=== PATIENT | female | born 1960 | race Caucasian/White ===

== ENCOUNTER 2017-03-05 12:43 | Emergency (ER) | payer BC ==
[2017-03-05 12:57] VITALS: TEMP 97; O2SAT 98
[2017-03-05] MEDS ORDERED: MORPHINE SULFATE INJ 10 MG/ML VIAL IM ONE (13:31)
[2017-03-05] MEDS ORDERED: TETANUS,DIPHTHERIA,PERTUSSIS 1 EA SYG IM ONE (13:31)
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
[2017-03-05] MEDS ORDERED: SILVER SULFADIAZINE 1 % 25 GM TUBE TOP ONE (14:01)
[2017-03-05 14:29] VITALS: BP 125/71
== END 2017-03-05 14:29 | disposition home or self-care (01) ==
LOC: ER 12:43
DX: T20.10XA Burn of first degree of head, face, and neck, unspecified site, initial encounter (principal); T22.10XA Burn of first degree of shoulder and upper limb, except wrist and hand, unspecified site, initial encounter; T20.17XA Burn of first degree of neck, initial encounter; G89.29 Other chronic pain; M54.5 Low back pain; F41.9 Anxiety disorder, unspecified; Z23 Encounter for immunization; X08.8XXA Exposure to other specified smoke, fire and flames, initial encounter; Y93.G3 Activity, cooking and baking; Y92.007 Garden or yard of unspecified non-institutional (private) residence as the place of occurrence of the external cause; Z87.891 Personal history of nicotine dependence

== ENCOUNTER → 2018-04-26 | Outpatient (CLI) | payer BC | LOC: LAB.O 08:00 | PROVIDERS: ATTEND General Practice | DX: R53.82 Chronic fatigue, unspecified (principal) ==

== ENCOUNTER → 2018-11-12 | Outpatient (CLI) | payer BC ==
--- NOTE | 2018-11-12 09:05 | RAD ---
EXAM DESCRIPTION: Fingers,Left CLINICAL HISTORY: 58 years Female, MIDDLE FINGER PAIN TECHNIQUE: 3 views of the left middle finger were performed. FINDINGS: The visualized bones are well-mineralized. Avulsion fracture of the volar plate of the distal phalanx of the left middle finger is noted. There is mild fixed flexion deformity of the distal interphalangeal joint. Mild soft tissue swelling is identified. IMPRESSION: Avulsion fracture of the volar plate of the distal phalanx of the left middle finger is noted. Electronically signed by: Mica Sr MD 11/12/2018 9:04 AM [facility]
== END ==
LOC: RAD 07:56
PROVIDERS: ATTEND Orthopaedic Surgery
DX: S62.633A Displaced fracture of distal phalanx of left middle finger, initial encounter for closed fracture (principal)

== ENCOUNTER → 2019-08-01 | Outpatient (CLI) | payer BC ==
--- NOTE | 2019-08-02 09:54 | MRI ---
EXAM DESCRIPTION: Lumbar Spine w/o Contrast : Magnetic Resonance Imaging. CLINICAL HISTORY: INSOMNIA. LOW BACK PAIN. COMPARISON: MR scan lumbar spine without contrast June 2012. TECHNIQUE: Multiplanar, multiple standard sequences, non contrast MRI, lumbar spine. FINDINGS: L5-S1: The disc is well visualized on axial T2 series 501, image 3. Disc desiccation with disc space maintained. No significant bulging. Minimal bilateral facet arthrosis. AP canal diameter 11 mm. Mild bilateral foraminal narrowing. No change since the prior study. L4-L5: Disc desiccation and minimal disc space loss. Anterior disc bulge with spurs. Moderate endplate reactive changes predominantly anterior and to the left of midline. Disc osteophyte complex on the right encroaching on the foramen and the right L4 nerve. Posterior broad-based disc bulge with minimal narrowing of the subarticular recesses. Hyperintense T2 annular fissure within disc bulge into the left foramen abutting the left L4 nerve. Mild bilateral hypertrophic facet arthrosis and flavum ligament thickening. AP canal diameter 11 mm. Moderate narrowing left foramen. Stable since the prior study. L3-L4: Disc desiccation and disc space preserved. Tiny posterior bulge. Bulge into the left foramen with hyperintense T2 annular fissure abutting the left L3 nerve. Mild to moderate narrowing of the right foramen. Bilateral hypertrophic facet arthrosis and ligament thickening. AP canal diameter 12 mm. No change since the prior study. L2-L3: Disc desiccation and disc space loss is mild. Anterior disc bulge with endplate ridging. Posterior skin mild broad-based disc bulge. Mild hypertrophic facet arthrosis and ligament hypertrophy. AP canal diameter 13 mm. Mild narrowing of the right foramen and mild to moderate narrowing of the left foramen. Foraminal narrowing has progressed since the prior study. L1-L2: Normal signal in the disc with disc space preserved. Posterior elements unremarkable. Canal and foramina are patent. Same findings at T12-L1. Conus terminates at T12-L1. Hemangioma superior L1 endplate. No change since the prior study. Mild convexity left lower lumbar spine and mild convexity right upper lumbar spine. Paravertebral soft tissues unremarkable. Distal cord normal signal and caliber. Otherwise normal marrow signal in the remaining vertebral bodies and the posterior elements. Vertebral bodies are not compressed at any level. IMPRESSION: 1. Multiple levels of canal narrowing, hypertrophic facet arthrosis and ligament hypertrophy, foraminal narrowing, disc desiccation and bulging. 2. Moderate spondylosis anteriorly and to the right at L4-L5 level with disc osteophyte complex encroaching on the foramen and the right L4 nerve. Moderate canal narrowing. Disc bulge with annular fissure into the left foramen abutting the left L4 nerve stable since the prior study. Stable since the prior study. 3. L2-L3 bilateral hypertrophic facet arthrosis and disc bulging with progressive foraminal narrowing since the prior study. 4. L3-L4 disc bulge into the left foramen with annular fissure abutting the left L3 nerve stable since the prior study. Electronically signed by: Hari Cartwright MD 08/02/2019 9:52 AM CDT
== END ==
LOC: MRI 09:00
PROVIDERS: ATTEND General Practice
DX: G47.00 Insomnia, unspecified (principal); M47.896 Other spondylosis, lumbar region; M51.86 Other intervertebral disc disorders, lumbar region; M25.78 Osteophyte, vertebrae